=== PATIENT | male | born 1950 | race Native Hawaiian/Other Pacific Islander ===

== ENCOUNTER 2019-01-11 10:06 | Outpatient (CLI) | payer OTHER, BC | END 2019-01-11 19:50 | disposition home or self-care (01) | LOC: EDSEX 10:06 → CT 10:06 | DX: D37.032 Neoplasm of uncertain behavior of the submandibular salivary glands (principal) | CPT/HCPCS: 82565; 84520; Q9963 ==

== ENCOUNTER 2019-02-09 11:43 | Outpatient (CLI) | payer OTHER, BC | END 2019-02-09 23:30 | disposition home or self-care (01) | LOC: US 11:43 | DX: D11.0 Benign neoplasm of parotid gland (principal) ==

== ENCOUNTER 2020-10-10 11:10 | Outpatient (CLI) | payer OTHER ==
[2020-10-21 10:20] LABS: PLATELET COUNT 172 K/uL (142-355)
[2020-10-21 10:21] LABS: POTASSIUM 4.6 mmol/L (3.6-5.2)
== END 2020-10-10 17:00 ==
LOC: LABW 11:10
PROVIDERS: ATTEND Nurse Practitioner Family
DX: R58 Hemorrhage, not elsewhere classified (principal)
CPT/HCPCS: 36415; 80053; 83630; 85027; 87015; 87045; 87324; 87328; 87329; 87449; 87899

== ENCOUNTER 2021-07-01 17:01 | Emergency (ER) | payer OTHER, BC ==
[~2021-07-01] VITALS: Ht 167.6 cm; Wt 121.1 kg
[2021-07-01 17:06] VITALS: TEMP 97.6
[2021-07-01 17:57] LABS: PLATELET COUNT 211 K/uL (142-355)
[2021-07-01 18:09] LABS: POTASSIUM 4.6 mmol/L (3.6-5.2)
[2021-07-01 19:00] VITALS: BP 145/69
== END 2021-07-01 20:25 | disposition home or self-care (01) ==
LOC: ED 17:01
PROVIDERS: Emergency Medicine Emergency Medical Services
DX: J44.1 Chronic obstructive pulmonary disease with (acute) exacerbation (principal); Z20.822 Contact with and (suspected) exposure to COVID-19
CPT/HCPCS: 36415; 80053; 83735; 83880; 84484; 85027; 87040; 87502; 87635; 87651; 93005; 94664; 96365; 96375; 99284; J2543; J2930; U0003

== ENCOUNTER 2021-07-14 10:11 | Emergency (ER) | payer OTHER, BC ==
[~2021-07-14] VITALS: Ht 167.6 cm; Wt 117.9 kg
[2021-07-14 10:35] LABS: PLATELET COUNT 168 K/uL (142-355)
[2021-07-14 10:55] LABS: POTASSIUM 4.9 mmol/L (3.6-5.2)
[2021-07-14] MEDS ORDERED: CARV25TA PO (11:41)
[2021-07-14] MEDS ORDERED: ISOSORB DIN20 MG PO (11:41)
[2021-07-14] MEDS ORDERED: CLON0.1T16 PO (11:42)
[2021-07-14] MEDS ORDERED: RANO1000T PO (11:43)
[2021-07-14] MEDS ORDERED: CLON0.5T36 PO (11:44)
[2021-07-14] MEDS ORDERED: ROPINIROLE HYDRO1 MG PO (11:44)
[2021-07-14] MEDS ORDERED: CITALOPRAM20 M1 PO (11:44)
[2021-07-14] MEDS ORDERED: PRAZOSIN HCL5 MG PO (11:45)
[2021-07-14] MEDS ORDERED: ALLO300T23 PO (11:47)
[2021-07-14] MEDS ORDERED: FINA5TAB2 PO (11:47)
[2021-07-14] MEDS ORDERED: OMEGA 31000 MG PO (11:48)
[2021-07-14] MEDS ORDERED: CORRECTOL100 MG PO (11:50)
[2021-07-14] MEDS ORDERED: COZAAR100 MG PO (11:50)
[2021-07-14] MEDS ORDERED: ASPIR-LOW81 MG PO (11:51)
[2021-07-14] MEDS ORDERED: CLOPIDOGREL75 MG PO (11:51)
[2021-07-14] MEDS ORDERED: LIPITOR80 MG PO (11:53)
[2021-07-14] MEDS ORDERED: MULTIVITAMIN1 TA1 PO (11:53)
[2021-07-14] MEDS ORDERED: ETHACRYNIC ACID25 MG PO (11:54)
[2021-07-14] MEDS ORDERED: DILT30TA24 PO (11:54)
[2021-07-14] MEDS ORDERED: VITAMIN D325 MCG PO (11:56)
[2021-07-14] MEDS ORDERED: EZETIMIBE10 MG PO (11:57)
[2021-07-14 12:53] VITALS: BP 98/44; TEMP 96.9
== END 2021-07-14 12:55 | disposition short-term general hospital (02) ==
LOC: ED 10:18
PROVIDERS: Emergency Medicine
DX: I24.9 Acute ischemic heart disease, unspecified (principal); Z11.52 Encounter for screening for COVID-19; Z98.890 Other specified postprocedural states; I10 Essential (primary) hypertension
CPT/HCPCS: 80053; 84484; 85007; 85027; 85610; 87635; 93005; 96360; 96361; 96365; 96375; 99285; J1170; J1250; J2405; U0003

== ENCOUNTER 2021-08-09 09:36 | Outpatient (CLI) | payer OTHER ==
[~2021-08-09 09:36] MED LIST: ALLO300T23 PO; ASPIR-LOW81 MG PO; CARV25TA PO; CITALOPRAM20 M1 PO; CLON0.1T16 PO; CLON0.5T36 PO; CLOPIDOGREL75 MG PO; CORRECTOL100 MG PO; COZAAR100 MG PO; DILT30TA24 PO; ETHACRYNIC ACID25 MG PO; EZETIMIBE10 MG PO; FINA5TAB2 PO; ISOSORB DIN20 MG PO; LIPITOR80 MG PO; MULTIVITAMIN1 TA1 PO; OMEGA 31000 MG PO; PRAZOSIN HCL5 MG PO; RANO1000T PO; ROPINIROLE HYDRO1 MG PO; VITAMIN D325 MCG PO
== END 2021-08-09 20:27 | disposition home or self-care (01) ==
LOC: MRI 09:36
PROVIDERS: ATTEND Urology
DX: N28.89 Other specified disorders of kidney and ureter (principal)
CPT/HCPCS: A9576

== ENCOUNTER 2021-10-03 08:13 | Outpatient (CLI) | payer OTHER, BC ==
[2021-10-03 09:18] LABS: POTASSIUM 4.1 mmol/L (3.6-5.2)
[2021-10-03 09:44] LABS: PLATELET COUNT 189 K/uL (142-355)
== END 2021-10-03 19:13 | disposition home or self-care (01) ==
LOC: LABW 08:13
PROVIDERS: ATTEND Internal Medicine Gastroenterology
DX: R94.5 Abnormal results of liver function studies (principal)
CPT/HCPCS: 36415; 80053; 82248; 85027

== ENCOUNTER 2021-12-20 08:40 | Outpatient (CLI) | payer OTHER | END 2021-12-20 21:48 | disposition home or self-care (01) | LOC: MRI 08:40 | PROVIDERS: ATTEND Urology | DX: N28.89 Other specified disorders of kidney and ureter (principal) | CPT/HCPCS: 36415; 82565; 84520; A9576 ==

== ENCOUNTER 2022-02-20 09:31 | Outpatient (CLI) | payer OTHER, BC ==
[2022-02-20 10:34] LABS: POTASSIUM 4.7 mmol/L (3.6-5.2)
[2022-02-20 11:08] LABS: PLATELET COUNT 187 K/uL (142-355)
== END 2022-02-20 21:56 | disposition home or self-care (01) ==
LOC: LABW 09:31
PROVIDERS: ATTEND Internal Medicine Cardiovascular Disease
DX: I25.10 Atherosclerotic heart disease of native coronary artery without angina pectoris (principal); E66.01 Morbid (severe) obesity due to excess calories; I10 Essential (primary) hypertension; E78.49 Other hyperlipidemia; R06.09 Other forms of dyspnea; Z79.899 Other long term (current) drug therapy
CPT/HCPCS: 36415; 80053; 80061; 82248; 83036; 83880; 85027

== ENCOUNTER 2022-04-25 10:11 | Outpatient (CLI) | payer OTHER, BC ==
[2022-04-25 10:46] LABS: POTASSIUM 4.6 mmol/L (3.6-5.2)
== END 2022-04-25 19:52 | disposition home or self-care (01) ==
LOC: LABW 10:11
PROVIDERS: ATTEND Internal Medicine Cardiovascular Disease
DX: I10 Essential (primary) hypertension (principal); E78.49 Other hyperlipidemia; R06.02 Shortness of breath; E66.01 Morbid (severe) obesity due to excess calories
CPT/HCPCS: 36415; 80048; 80061; 83880